=== PATIENT | male | born 1950 | race Caucasian/White ===

== ENCOUNTER 2022-06-15 13:17 | Outpatient (CLI) | payer MEDICARE, OTHER | END 2022-06-15 13:18 | disposition home or self-care (01) | LOC: TBSIIMAG 13:17 | PROVIDERS: ATTEND Neurological Surgery | DX: M47.22 Other spondylosis with radiculopathy, cervical region (principal); R29.890 Loss of height; Z98.890 Other specified postprocedural states | CPT/HCPCS: 72040 ==